=== PATIENT | female | born 1975 | race Caucasian/White ===

== ENCOUNTER 2019-10-09 09:00 | Day surgery (SDC) | payer MEDICARE, MEDICAID ==
[~2019-10-09 09:00] MED LIST: Midazolam 1 MG/ML 2 ML SDV ONE; Propofol 200 MG/20 ML SDV ONE; fentaNYL 100 MCG/2 ML SDV ONE
[2019-10-09] MEDS ORDERED: Cyanocobalamin (Vitamin B12) 1,000 MCG/ML SDV IM ONE (10:00)
[2019-10-09] MEDS ORDERED: Lactated Ringers 1,000 ML IV SCH (10:00)
[2019-10-09] MEDS ORDERED: Glycopyrrolate 0.2 MG/ML 2 ML SDV IVPUSH ONE (10:30)
[2019-10-09] MEDS ORDERED: MVI, Adult with Vitamin K 10 ML, Thiamine 200 MG, Chromium/Copper/Mang/Selen/Zn 1 ML in... IV ONE ×4 (11:00)
[2019-10-09] MEDS ORDERED: Acetaminophen 325 MG Tab PO ONE (12:28)
--- NOTE | 2019-10-13 17:46 | OR ---
DATE OF PROCEDURE: 10/09/2019 SURGEON: Jesse Schafer MD PREOPERATIVE DIAGNOSIS: Weight regain status post Fátima-en-Y gastric bypass. POSTOPERATIVE DIAGNOSIS: Normal upper gastrointestinal endoscopic examination status post Fátima-en-Y gastric bypass. OPERATIVE PROCEDURES: Upper gastrointestinal endoscopy with gastric pouch biopsies for CLOtest. ANESTHESIA: IV sedation. INDICATION FOR PROCEDURE: The patient is status post an open Fátima-en-Y gastric bypass in 2003. Recently, she has had progressive weight regain. weight prior to the original procedure was 365 pounds. Her weight has now climbed back up to 306 pounds after initial good weight losing, getting down into a point just above 200 pounds in the early years postoperatively. The plan is to proceed with upper GI endoscopy to evaluate the status of gastric pouch and gastrojejunostomy in preparation for subsequent revisional procedure. Potential risks including bleeding and perforation were discussed, and the patient wishes to proceed. DETAILS OF PROCEDURE: The patient was taken to the operating room and placed in a left lateral decubitus position. IV sedation was administered, after which the upper GI endoscope was passed orally through the length of the esophagus and then into the gastric pouch and from there through the gastrojejunostomy roughly 20 cm into the Fátiam limb. Overall, the examination was entirely normal. There were no areas of inflammation or stricturing. The patient was noted to have a quite small gastric pouch and required fairly small gastrojejunostomy. The remainder of the Fátima limb visualized was unremarkable. Biopsies were then obtained from the gastric pouch and sent for CLOtest for H pylori. Minimal bleeding from the biopsy sites was seen, and the procedure then concluded. The patient will be attempting to have a shortly and after that has been concluded, she will be a good candidate for a revisional procedure. She had a very small pouch and fairly small gastrojejunostomy. So, there will be no benefit in revising that component of gastric bypass. So, the revisional procedure would entail an open approach given the previous open surgery and reducing the elementary limb length to perhaps 300 cm total length. Jesse Schafer MD /[id number]
== END 2019-10-09 13:05 | disposition home or self-care (01) ==
LOC: JP.SDS 09:00
PROVIDERS: ATTEND Surgery
DX: Z09 Encounter for follow-up examination after completed treatment for conditions other than malignant neoplasm (principal); E78.5 Hyperlipidemia, unspecified; F41.1 Generalized anxiety disorder; E66.01 Morbid (severe) obesity due to excess calories; Z68.42 Body mass index [BMI] 45.0-49.9, adult; Z91.030 Bee allergy status; Z98.84 Bariatric surgery status
CPT/HCPCS: 81025; 87081; A9270-GY; J2250; J2704; J3010; J3411; J3420; J3490; J7120

== ENCOUNTER 2023-03-08 14:55 | Inpatient (IN) | payer MEDICARE, MEDICAID ==
[2023-03-08] MEDS ORDERED: Dextrose 5%-Lactated Ringers 1,000 ML IV SCH (15:15)
[2023-03-08] MEDS ORDERED: Acetaminophen 325 MG Tab PO PRN (15:15)
[2023-03-08] MEDS ORDERED: Acetaminophen 650 MG Supp RECTAL PRN (15:16)
[2023-03-08] MEDS ORDERED: Calcium Carbonate 500 MG Tab.Chew PO PRN (15:18)
[2023-03-08] MEDS ORDERED: Ondansetron 4 MG/2 ML SDV IVPUSH PRN (15:20)
[2023-03-08] MEDS ORDERED: HYDROmorphone 0.5 MG/0.5 ML Syringe IVPUSH PRN (15:21)
[2023-03-08] MEDS ORDERED: HYDROmorphone 1 MG/ML Syringe IV PRN (15:22)
[2023-03-08 15:39] LABS: BASOPHILS ABSOLUTE AUTO 0.06 K/uL (0.00-0.10); BASOPHILS PERCENT AUTO 0.9 % (0.1-1.3); EOSINOPHILS ABSOLUTE AUTO 0.15 K/uL (0.00-0.40); EOSINOPHILS PERCENT AUTO 2.3 % (0.0-5.4); HEMATOCRIT 41.8 % (34.3-46.0); HEMOGLOBIN 14.1 g/dL (11.2-15.5); IMMATURE GRAN PERCENT AUTO 0.2 % (0.0-0.7); LYMPHOCYTES ABSOLUTE AUTO 2.63 K/uL (0.8-3.3); LYMPHOCYTES PERCENT AUTO 39.7 % (11.4-47.7); MEAN CORPUSCULAR HEMOGLOBIN 29.9 pg (31.6-35.5); MEAN CORPUSCULAR HGB CONC 33.7 g/dL (31.6-35.5); MEAN CORPUSCULAR VOLUME 88.7 fL (81.4-99.0); MONOCYTES ABSOLUTE AUTO 0.44 K/uL (0.20-0.90); MONOCYTES PERCENT AUTO 6.6 % (3.3-12.6); NEUTROPHILS ABSOLUTE AUTO 3.34 K/uL (1.0-7.6); NEUTROPHILS PERCENT AUTO 50.3 % (40.0-78.1); PLATELET COUNT,PLT 247 K/uL (130-375); RED BLOOD CELL COUNT 4.71 M/uL (3.77-5.24); WHITE BLOOD CELL COUNT,WBC 6.6 K/uL (3.2-11.0)
[2023-03-08 15:42] LABS: IMMATURE GRAN ABSOLUTE AUTO 0.01 K/uL (0.00-0.23)
[2023-03-08] MEDS ORDERED: Pantoprazole 40 MG Vial IV SCH (16:00)
[2023-03-08 16:17] LABS: ALANINE AMINOTRANSFERASE,ALT 26 U/L (12-78); ALBUMIN 3.5 g/dL (3.4-5.0); ALKALINE PHOSPHATASE 100 U/L (46-116); ASPARTATE AMNIOTRANSFERASE,AST 19 U/L (15-37); BILIRUBIN TOTAL 0.6 mg/dL (0.2-1.0); BLOOD UREA NITROGEN,BUN 14 mg/dL (7-18); CARBON DIOXIDE,CO2 26 mmol/L (21-32); CHLORIDE,CL 104 mmol/L (100-108); EST CRCL DRUG DOSING (CG) 65.11 mL/min; ESTIMATED GFR 70 mL/min (>60); FERRITIN 44 ng/ml (8-388); FOLIC ACID 14.5 ng/ml (8.6-58.9); GLUCOSE RANDOM 138 mg/dL (74-106); PHOSPHORUS 4.1 mg/dL (2.5-4.9); POTASSIUM,K 3.6 mmol/L (3.6-5.2); PRO B-TYPE NATRIUR PEPT,BNPPRO 64 pg/mL (5-125); PROTEIN TOTAL,TP 7.1 g/dL (6.4-8.2); SODIUM,NA 137 mmol/L (140-148)
[2023-03-08 16:40] LABS: ANION GAP 10.6 mmol/L (5.0-14.0)
[2023-03-09] MEDS ORDERED: Bupivacaine 0.5% 50 ML MDV ONE (06:53)
[2023-03-09] MEDS ORDERED: Lidocaine 1% with EPINEPHrine 1:100,000 50 ML MDV ONE (06:53)
[2023-03-09] MEDS ORDERED: Meropenem 500 MG SDV ONE (06:56)
[2023-03-09] MEDS ORDERED: Rocuronium 50 MG/5 ML Vial ONE (07:08)
[2023-03-09] MEDS ORDERED: Neostigmine Methylsulfate 1 MG/ML 5 ML Syringe ONE (07:08)
[2023-03-09] MEDS ORDERED: Propofol 200 MG/20 ML SDV ONE (07:08)
[2023-03-09] MEDS ORDERED: Dexamethasone 4 MG/ML SDV ONE (07:08)
[2023-03-09] MEDS ORDERED: Glycopyrrolate 0.2 MG/ML 5 ML MDV ONE (07:08)
[2023-03-09] MEDS ORDERED: Succinylcholine 200 MG/10 ML MDV ONE (07:08)
[2023-03-09] MEDS ORDERED: Ondansetron 4 MG/2 ML SDV ONE (07:08)
[2023-03-09] MEDS ORDERED: fentaNYL 250 MCG/5 ML SDV ONE ×2 (07:08→10:23)
[2023-03-09] MEDS ORDERED: Acetaminophen 1,000 MG in Premix Bag 1 BAG IV ONE ×2 (08:00→09:00)
[2023-03-09] MEDS ORDERED: cefOXitin 2 GM in Sodium Chloride 0.9% 50 ML IV ONE (09:30)
[2023-03-09] MEDS ORDERED: Ketamine 18 MG in Sodium Chloride 0.9% 19.82 ML IV SCH (10:00)
[2023-03-09] MEDS ORDERED: Ketamine 500 MG/5 ML MDV IV SCH (10:00)
[2023-03-09] MEDS ORDERED: Lactated Ringers 1,000 ML ONE (10:39)
[2023-03-09] MEDS ORDERED: Linezolid 600 MG/300 ML Premix Bag IRR ONE (11:32)
[2023-03-09] MEDS ORDERED: Naloxone 0.4 MG/ML SDV IV PRN (13:50)
[2023-03-09] MEDS: HYDROmorphone/Normal Saline 6 MG/30 ML PCA Vial IV PRN (14:05)
[2023-03-09] MEDS ORDERED: hydrOXYzine HCl 50 MG/ML SDV IM PRN (14:05)
[2023-03-09] MEDS ORDERED: Metoclopramide 10 MG/2 ML SDV IVPUSH PRN (14:05)
[2023-03-09] MEDS ORDERED: diphenhydrAMINE 50 MG/ML SDV IVPUSH PRN (14:05)
[2023-03-09] MEDS ORDERED: Labetalol 20 MG/4 ML Syringe IVPUSH PRN (14:05)
[2023-03-09] MEDS ORDERED: Acetaminophen 500 MG Tab PO PRN (14:05)
[2023-03-09] MEDS: Dextrose 5%-Lactated Ringers 1,000 ML IV SCH ×2 (14:25→23:36)
[2023-03-09] MEDS ORDERED: Scopolamine 1.5 MG Transdermal Patch TOP SCH (14:30)
[2023-03-09] MEDS: SCOPOLAMINE PATCH CHECK TOP SCH (14:37)
[2023-03-09] MEDS ORDERED: MVI, Adult with Vitamin K 10 ML, Thiamine 200 MG, Zinc/Copper/Manganese/Selenium 1 ML i... IV SCH ×4 (16:00)
[2023-03-09] MEDS: cefOXitin 2 GM in Sodium Chloride 0.9% 50 ML IV SCH ×2 (16:35→21:15)
[2023-03-09] MEDS: Pantoprazole 40 MG Vial IVPUSH SCH (16:40)
[2023-03-09] MEDS: Heparin Sodium 5,000 Units/ML Vial SUBCUT SCH (21:09)
[2023-03-09] MEDS: Acetaminophen 500 MG Tab PO SCH (21:15)
[2023-03-10] MEDS: cefOXitin 2 GM in Sodium Chloride 0.9% 50 ML IV SCH ×4 (04:07→21:03)
[2023-03-10 04:44] LABS: BASOPHILS PERCENT AUTO 0.1 % (0.1-1.3); HEMATOCRIT 39.3 % (34.3-46.0); HEMOGLOBIN 13.3 g/dL (11.2-15.5); IMMATURE GRAN ABSOLUTE AUTO 0.05 K/uL (0.00-0.23); IMMATURE GRAN PERCENT AUTO 0.3 % (0.0-0.7); LYMPHOCYTES ABSOLUTE AUTO 0.96 K/uL (0.8-3.3); LYMPHOCYTES PERCENT AUTO 6.7 % (11.4-47.7); MEAN CORPUSCULAR HGB CONC 33.8 g/dL (31.6-35.5); MEAN CORPUSCULAR VOLUME 88.7 fL (81.4-99.0); MONOCYTES ABSOLUTE AUTO 0.77 K/uL (0.20-0.90); MONOCYTES PERCENT AUTO 5.3 % (3.3-12.6); NEUTROPHILS ABSOLUTE AUTO 12.61 K/uL (1.0-7.6); NEUTROPHILS PERCENT AUTO 87.6 % (40.0-78.1); PLATELET COUNT,PLT 211 K/uL (130-375); RED BLOOD CELL COUNT 4.43 M/uL (3.77-5.24); WHITE BLOOD CELL COUNT,WBC 14.4 K/uL (3.2-11.0)
[2023-03-10 04:49] LABS: BASOPHILS ABSOLUTE AUTO 0.02 K/uL (0.00-0.10)
[2023-03-10 05:19] LABS: A/G RATIO 0.8 (1.2-2.2); ALANINE AMINOTRANSFERASE,ALT 53 U/L (12-78); ALBUMIN 2.8 g/dL (3.4-5.0); ALKALINE PHOSPHATASE 71 U/L (46-116); ANION GAP 8.1 mmol/L (5.0-14.0); ASPARTATE AMNIOTRANSFERASE,AST 50 U/L (15-37); BILIRUBIN TOTAL 0.6 mg/dL (0.2-1.0); BLOOD UREA NITROGEN,BUN 8 mg/dL (7-18); CALCIUM 8.9 mg/dL (8.5-10.1); CARBON DIOXIDE,CO2 27 mmol/L (21-32); CHLORIDE,CL 106 mmol/L (100-108); CREATININE 1.1 mg/dL (0.6-1.0); EST CRCL DRUG DOSING (CG) 59.19 mL/min; ESTIMATED GFR 62 mL/min (>60); FERRITIN 84 ng/ml (8-388); GLUCOSE RANDOM 138 mg/dL (74-106); MAGNESIUM 1.8 mg/dL (1.8-2.4); POTASSIUM,K 4.3 mmol/L (3.6-5.2); PRO B-TYPE NATRIUR PEPT,BNPPRO 175 pg/mL (5-125); PROTEIN TOTAL,TP 6.3 g/dL (6.4-8.2); SODIUM,NA 141 mmol/L (140-148)
[2023-03-10] MEDS: HYDROmorphone/Normal Saline 6 MG/30 ML PCA Vial IV PRN ×2 (05:33→21:57)
[2023-03-10] MEDS: Dextrose 5%-Lactated Ringers 1,000 ML IV SCH ×2 (05:34→14:24)
[2023-03-10] MEDS ORDERED: Iopamidol 510 MG/ML 50 ML SDV PO ONE (05:38)
[2023-03-10] MEDS: Acetaminophen 500 MG Tab PO SCH ×3 (05:41→20:59)
[2023-03-10] MEDS: Heparin Sodium 5,000 Units/ML Vial SUBCUT SCH ×2 (08:59→19:37)
[2023-03-10] MEDS: Celecoxib 200 MG Cap PO SCH ×2 (09:01→20:59)
[2023-03-10] MEDS: SCOPOLAMINE PATCH CHECK TOP SCH (09:01)
[2023-03-10] MEDS: Bisacodyl 5 MG Tab PO SCH ×2 (10:29→20:59)
[2023-03-10] MEDS: Docusate Sodium 100 MG Cap PO SCH ×2 (10:29→20:59)
[2023-03-10] MEDS ORDERED: MVI, Adult with Vitamin K 10 ML, Thiamine 200 MG, Zinc/Copper/Manganese/Selenium 1 ML i... IV SCH ×4 (16:00)
[2023-03-10] MEDS: Pantoprazole 40 MG Vial IVPUSH SCH (17:00)
[2023-03-11] MEDS: cefOXitin 2 GM in Sodium Chloride 0.9% 50 ML IV SCH ×2 (03:34→10:53)
[2023-03-11] MEDS: Dextrose 5%-Lactated Ringers 1,000 ML IV SCH ×2 (03:35→15:42)
[2023-03-11] MEDS: Acetaminophen 500 MG Tab PO SCH ×3 (05:07→22:31)
[2023-03-11] MEDS ORDERED: Cyanocobalamin (Vitamin B12) 1,000 MCG/ML SDV IM ONE (09:00)
[2023-03-11] MEDS: Bisacodyl 5 MG Tab PO SCH ×2 (10:47→20:19)
[2023-03-11] MEDS: Docusate Sodium 100 MG Cap PO SCH ×2 (10:47→20:18)
[2023-03-11] MEDS: Celecoxib 200 MG Cap PO SCH ×2 (10:47→20:19)
[2023-03-11] MEDS: Heparin Sodium 5,000 Units/ML Vial SUBCUT SCH ×2 (10:47→20:18)
[2023-03-11] MEDS: SCOPOLAMINE PATCH CHECK TOP SCH (10:48)
[2023-03-11] MEDS: Cyclobenzaprine 10 MG Tab PO PRN ×2 (13:58→21:58)
[2023-03-11] MEDS: oxyCODONE 5 MG Tab PO PRN ×2 (13:58→17:55)
[2023-03-11] MEDS ORDERED: Pantoprazole 40 MG Delayed-Release Granules 1 Packet PO SCH (16:00)
[2023-03-12] MEDS: oxyCODONE 5 MG Tab PO PRN ×2 (00:43→07:09)
[2023-03-12] MEDS: Acetaminophen 500 MG Tab PO SCH ×2 (06:11→08:13)
[2023-03-12] MEDS: Heparin Sodium 5,000 Units/ML Vial SUBCUT SCH (08:12)
[2023-03-12] MEDS: Celecoxib 200 MG Cap PO SCH (09:53)
[2023-03-12] MEDS: Bisacodyl 5 MG Tab PO SCH (09:54)
[2023-03-12] MEDS: Docusate Sodium 100 MG Cap PO SCH (09:54)
== END 2023-03-12 13:55 | disposition home or self-care (01) | DRG 330 ==
LOC: JP.MS 14:55
PROVIDERS: ADMIT Surgery; ATTEND Surgery
PROC: 0DQ80ZZ Repair Small Intestine, Open Approach (ICD-10-PCS; principal; 2023-03-09)
PROC: 0DT80ZZ Resection of Small Intestine, Open Approach (ICD-10-PCS; principal; 2023-03-09)
PROC: 0DBA0ZX Excision of Jejunum, Open Approach, Diagnostic (ICD-10-PCS; principal; 2023-03-09)
PROC: 0WUF0JZ Supplement Abdominal Wall with Synthetic Substitute, Open Approach (ICD-10-PCS; principal; 2023-03-09)
DX: K91.89 Other postprocedural complications and disorders of digestive system (principal); K31.6 Fistula of stomach and duodenum; K43.0 Incisional hernia with obstruction, without gangrene; K56.600 Partial intestinal obstruction, unspecified as to cause; K91.2 Postsurgical malabsorption, not elsewhere classified; D51.9 Vitamin B12 deficiency anemia, unspecified; E78.5 Hyperlipidemia, unspecified; F32.A Depression, unspecified; F41.1 Generalized anxiety disorder; E66.01 Morbid (severe) obesity due to excess calories; Z91.030 Bee allergy status; Z90.49 Acquired absence of other specified parts of digestive tract; Z98.890 Other specified postprocedural states; E55.9 Vitamin D deficiency, unspecified; E60 Dietary zinc deficiency; E50.9 Vitamin A deficiency, unspecified; R10.11 Right upper quadrant pain; K63.89 Other specified diseases of intestine; R19.7 Diarrhea, unspecified; Z98.84 Bariatric surgery status
CPT/HCPCS: 36415; 74177; 74177-26; 74240; 74240-26; 80053; 82306; 82525; 82607; 82728; 82746; 83735; 83880; 84100; 84425; 84590; 84630; 85025; 88300; 88307; 93005; 93010; A9270-GY; C9113; J0131; J0171; J0330; J0694; J1100; J1170; J1644; J2020; J2185; J2405; J2704; J2710; J2795; J3010; J3410; J3411; J3420; J3490; J7120; J7121; Q9966; Q9967; U0002